=== PATIENT | female | born 1990 | race Caucasian/White ===

== ENCOUNTER 2016-10-09 03:57 | Emergency (ER) | payer OTHER ==
[~2016-10-09] VITALS: Ht 167.6 cm; Wt 64.4 kg
[2016-10-09 04:12] VITALS: BP 104/68
--- NOTE | 2016-10-09 04:40 | ED GI/GU/ABDOMINAL COMPLAINT ---
History of Present Illness General Chief Complaint: Female Urogenital Problems Stated Complaint: LOWER ABD PAIN,AFTER DONATING EGGS Source: patient, family, old records Exam Limitations: no limitations Vital Signs & Intake/Output Vital Signs & Intake/Output Vital Signs Date Time Temp Pulse Resp B/P B/P Pulse O2 O2 Flow FiO2 Mean Ox Delivery Rate 10/09 0430 99 Room Air 10/09 0412 97.8 80 16 104/68 98 Room Air Triage Note: 36YO FEMALE TO RM 5 W/CO LOW ABD PAIN 01/10 TNITE. STATES "SHE DONATED HER EGGS 2 D AGO, HAD NO PAIN UNTIL TONITE." DENIES ANY VAG BLEEDING OR DISCHARGE. Triage Nurses Notes Reviewed? yes LMP (ages 10-50): date (2 weeks ago) ? n Is pt currently ? No Onset: Abrupt Duration: hour(s):, constant, continues in ED Timing: recent history Quality/Severity: sharpness, severe Location: left lower quadrant, right lower quadrant Radiation: no radiation Activities at Onset: sleep Prior Abdominal Problems: none Past Sexual History: Unobtainable at this time Modifying Factors: Worsens With: movement, palpation. HPI: 2 days prior to admission patient had eggs harvested. This is her third time and is only required ibuprofen for analgesia. She complains of severe sharp constant bilateral lower quadrant nonradiating pain. She denies fever chills nausea vomiting diarrhea chest pain cough shortness of breath headache dysuria rash bleeding. Past History Travel History Traveled to [place] past 21 day No Medical History Any Pertinent Medical History? 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 No Review of Systems Review of Systems Constitutional: Reports: no symptoms. EENTM: Reports: no symptoms. Respiratory: Reports: no symptoms. Cardiovascular: Reports: no symptoms. GI: Reports: no symptoms. Genitourinary: Reports: see HPI, pain. Musculoskeletal: Reports: no symptoms. Skin: Reports: no symptoms. Neurological/Psychological: Reports: no symptoms. Hematologic/Endocrine: Reports: no symptoms. Immunologic/Allergic: Reports: no symptoms. All Other Systems: Reviewed and Negative Physical Exam Physical Exam General Appearance: well developed/nourished, alert, awake, anxious, severe distress, thin Head: atraumatic, normal appearance Eyes: Bilateral: normal appearance, PERRL, EOMI, normal inspection. Ears, Nose, Throat, Mouth: hearing grossly normal, moist mucous membrane Neck: normal inspection, supple, full range of motion, normal alignment Respiratory: normal breath sounds, chest non-tender, no respiratory distress, quiet respiration, lungs clear Cardiovascular: regular rate/rhythm, normal peripheral pulses, norml femoral pulses equa Peripheral Pulses: 4+ carotid (R), 4+ carotid (L) Gastrointestinal: normal bowel sounds, soft, no organomegaly, tenderness ( bilateral lower quadrant) Back: normal inspection, normal range of motion Extremities: normal range of motion, no ligament instability Neurologic/Psych: no motor/sensory deficits, awake, alert, oriented x 3, normal gait, normal mood/affect, diver pumper II-XII nml as tested Skin: intact, normal color, warm/dry, cyanosis Core Measures ACS in differential dx? No Severe Sepsis Present: No Septic Shock Present: No Progress Differential Diagnosis: appendicitis, endometritis, ovarian cyst, ovarian torsion Plan of Care: Orders Procedure Date/time Status PROTHROMBIN TIME 10/09 428 Complete COMPREHENSIVE METABOLIC PANEL 10/09 428 Complete CBC WITHOUT DIFFERENTIAL 10/09 428 Complete Laboratory Tests 10/09/16 0435: Anion Gap 10, Estimated GFR > 60, BUN/Creatinine Ratio 21.3, Glucose 76, Calcium 9.0, Total Bilirubin 0.3, AST 28, ALT 41, Alkaline Phosphatase 56, Total Protein 6.3, Albumin 3.5, Globulin 2.8, Albumin/Globulin Ratio 1.3, PT 11.8, INR 1.13, CBC w Diff MAN DIFF ORDERED, RBC 4.72, MCV 86.7, MCH 29.3, RDW 14.1, MPV 10.1, Gran % 55.5, Lymphocytes % 32.2, Monocytes % 9.1, Eosinophils % 2.7, Basophils % 0.5, Absolute Granulocytes 6.3, Segmented Neutrophils 55, Band Neutrophils 7 H, Absolute Lymphocytes 3.6 H, Lymphocytes 26, Monocytes 7, Absolute Monocytes 1.0 H, Eosinophils 5, Absolute Eosinophils 0.3, Absolute Basophils 0.1, Platelet Estimate ADEQUATE, Normocytic RBCs VERIFIED, Normochromic RBCs VERIFIED, PUBS MCHC 33.8, Fld Total RBCs Counted 100 Diagnostic Imaging: Viewed by Me: Ultrasound. Discussed w/RAD: Ultrasound. 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 Departure Forms: Customer Survey General Discharge Information
[2016-10-09 05:25] LABS: ABSOLUTE BASOPHIL COUNT 0.1 /CUMM (0.0-0.2); ABSOLUTE EOSINOPHIL COUNT 0.3 /CUMM (0.0-0.7); ABSOLUTE GRANULOCYTE CT 6.3 /CUMM (1.4-6.5); ABSOLUTE LYMPH COUNT 3.6 /CUMM (1.2-3.4); BASOPHIL % 0.5 % (0.0-2.0); EOSINOPHIL % 2.7 % (0-5); GRANULOCYTE % 55.5 % (42.2-75.2); HEMATOCRIT 40.9 % (37-47); MEAN CORPUSCULAR HGB 29.3 PG (27.0-31.0); MEAN CORPUSCULAR HGB CONC 33.8 G/DL (33.0-37.0); MEAN CORPUSCULAR VOLUME 86.7 FL (81.0-99.0); MEAN PLATELET VOLUME 10.1 FL (7.4-10.4); PLATELET COUNT 155 /CUMM (130-400); RBC DISTRIBUTION WIDTH 14.1 % (11.5-14.5); RED BLOOD CELL CT 4.72 /CUMM (4.20-5.40); WHITE BLOOD CELL COUNT 11.3 /CUMM (4.8-10.8)
[2016-10-09 05:33] LABS: PT 11.8 SEC (9.4-12.5)
--- NOTE | 2016-10-09 06:09 | ULTRASOUND REPORT ---
EXAMINATION: ULTRASOUND OF THE PELVIS CLINICAL INFORMATION: Egg donation with pelvic pain.. COMPARISON: None. TECHNIQUE: Transabdominal and transvaginal pelvic ultrasound. Doppler evaluation with spectral analysis performed. A transvaginal study was performed in addition to the transabdominal study which did not yield an adequate examination of the uterus and ovaries due to superimposed distended gas-filled loops of bowel. FINDINGS: The uterus is normal in size and appearance, measuring 7.9 x 2.5 x 3.9 cm longitudinally, anteroposteriorly and transversely. The endometrial stripe thickness is normal, measuring 0.7 cm in thickness. No focal myometrial mass is seen. The cervical length is normal measuring 2.5 cm. The ovaries bilaterally are visualized, with the right ovary measuring 8.1 x 4.8 x 4.9 cm, volume 99 mL, and the left ovary measuring 8.7 x 5.6 x 6.4 cm, volume 161 mL. Normal arterial and venous spectral waveforms are seen to both ovaries. There are numerous enlarged ovarian follicles bilaterally, some of which appear complex. For instance, in the left ovary there is a 2.7 x 2.6 x 2.6 cm complex cystic structure with internal echoes. No internal vascularity. There is a similar-appearing cystic structure in the right ovary measuring 2 x 1.8 x 2 cm with no internal vascularity. No adnexal mass or free fluid collection seen. IMPRESSION: 1. No active ovarian torsion at this time. 2. Prominently enlarged ovaries bilaterally with numerous prominent follicles, consistent with the history of egg donation. Some of these are heterogeneous and could represent hemorrhagic cysts.
== END 2016-10-09 06:49 ==
LOC: ERH 03:57
PROVIDERS: Emergency Medicine
DX: N83.201 Unspecified ovarian cyst, right side (principal); N83.202 Unspecified ovarian cyst, left side
CPT/HCPCS: 96361; 96374; J1885